=== PATIENT | female | born 1975 | race Caucasian/White ===

== ENCOUNTER 2016-05-12 18:00 | Emergency (ER) | payer BC ==
[~2016-05-12] VITALS: Ht 160 cm; Wt 104.0 kg
[~2016-05-12 18:00] MED LIST: ACID REDUCER; AFRIN 12 HOUR0.05 %; ALBUTEROL SUL0.083 % IN; ASPIRIN325 MG PO; ATIVAN0.5 MG PO; BACTRIM DS1 TAB PO; CALCIUM600 M2 PO; CIPROFLOXACN500 MG PO; COMBIVENT RESPIMAT IN; DENIES CURRENT MEDS; FLEXERIL OR; LORTAB 1010 MG PO; LORTAB 5 PO; LORTAB 5/3255 MG PO; LORTAB 7.5 PO; LORTAB5 PO; LYRICA100 MG PO; LYRICA50 MG PO; NORCO1 TA1 PO; POTASSIUM99 MG PO; SUDAFED 12HR120 MG PO; VITAMIN B-121000 MCG PO; ZESTRIL5 M1 PO; ZITHROMAX500 MG PO; ZOFRAN ODT4 MG PO; ZOFRAN4 MG/TAB PO
[2016-05-12] MEDS ORDERED: ATIVAN0.5 MG PO (18:53)
[2016-05-12 19:08] LABS: URINE BILIRUBIN - DIPSTICK NEGATIVE (NEGATIVE); URINE BLOOD DIPSTICK NEGATIVE (NEGATIVE); URINE CLARITY CLEAR; URINE COLOR YELLOW; URINE GLUCOSE - DIPSTICK NEGATIVE (NEGATIVE); URINE KETONE NEGATIVE (NEGATIVE); URINE NITRITE - DIPSTICK NEGATIVE (Negative); URINE PROTEIN - DIPSTICK NEGATIVE (NEG-TRACE); URINE SPECIFIC GRAVITY <=1.005; URINE UROBILINOGEN - DIPSTICK 0.2 E.U./dL (0.2)
[2016-05-12 19:09] LABS: URINE LEUK ESTERASE TRACE (NEGATIVE)
[2016-05-12 19:25] VITALS: BP 119/61
== END 2016-05-12 19:25 | disposition home or self-care (01) | DRG 880 ==
LOC: ED 18:00
PROVIDERS: Emergency Medicine
DX: F41.9 Anxiety disorder, unspecified (principal)
CPT/HCPCS: J2060

== ENCOUNTER 2016-11-29 15:01 | Emergency (ER) | payer BC ==
[~2016-11-29] VITALS: Ht 160 cm; Wt 100.0 kg
[2016-11-29 15:59] LABS: HEMATOCRIT 36.1 % (37.0-47.0); HEMOGLOBIN 12.8 g/dl (12.0-16.0); IMMATURE GRANULOCYTES 0.3 % (0.0-1.0); MEAN CELL VOLUME 90.9 fL CALC (80.0-100.0); MEAN CORPUSCULAR HGB 32.2 pG CALC (26.0-32.0); MEAN CORPUSCULAR HGB CONC 35.5 g/L CALC (32.0-36.0); NEUT# 3.09 thou/uL (2.00-7.15); RED BLOOD COUNT 3.97 mill/uL (4.20-5.60); RED CELL DISTRI WIDTH 12.1 % (11.5-15.5)
[2016-11-29 16:02] LABS: URINE BILIRUBIN - DIPSTICK NEGATIVE (NEGATIVE); URINE BLOOD DIPSTICK LARGE (NEGATIVE); URINE CLARITY CLOUDY; URINE COLOR YELLOW; URINE GLUCOSE - DIPSTICK NEGATIVE (NEGATIVE); URINE KETONE NEGATIVE (NEGATIVE); URINE LEUK ESTERASE NEGATIVE (NEGATIVE); URINE NITRITE - DIPSTICK NEGATIVE (Negative); URINE PROTEIN - DIPSTICK NEGATIVE (NEG-TRACE); URINE UROBILINOGEN - DIPSTICK 0.2 E.U./dL (0.2)
[2016-11-29 16:09] LABS: URINE AMORPH SEDIMENT MANY hpf (NONE-FEW); URINE SQUAMOUS EPITHELIAL CELL FEW EPI/hpf (0-FEW)
[2016-11-29 16:18] LABS: ALBUMIN 4.7 g/dL (3.2-5.0); ALKALINE PHOSPHATASE 100 u/l (38-126); ANION GAP 17 (6-22 (CALC)); BILIRUBIN, TOTAL 0.8 mg/dL (0.0-1.4); BUN 16 mg/dL (7-17); BUN/CREATININE RATIO 17 (12-20 (CALC)); CALCIUM 9.4 mg/dL (8.4-10.2); CARBON DIOXIDE 23 mmol/l (22-30); CHLORIDE 105 mmol/l (95-108); CREATININE 0.9 mg/dL (0.5-1.0); GFR > 60 ML/MIN (>=60 (CALC)); GFR FOR AFR.AMER. > 60 ML/MIN (>=60 (CALC)); GLUCOSE 101 mg/dL (65-105); SGOT/AST 36 u/l (14-36); SGPT/ALT 49 u/l (9-52); SODIUM 141 mmol/l (137-146); TOTAL PROTEIN 6.9 g/dL (6.3-8.2)
[2016-11-29] MEDS ORDERED: NAPROSYN500 MG PO (17:34)
[2016-11-29] MEDS ORDERED: CIPROFLOXACN500 MG PO (17:34)
[2016-11-29 17:46] VITALS: BP 129/86
== END 2016-11-29 17:56 | disposition home or self-care (01) | DRG 690 ==
LOC: ED 15:01
PROVIDERS: Emergency Medicine
DX: N39.0 Urinary tract infection, site not specified (principal); F41.9 Anxiety disorder, unspecified; R10.9 Unspecified abdominal pain; M51.36 Other intervertebral disc degeneration, lumbar region; J45.909 Unspecified asthma, uncomplicated; Z87.442 Personal history of urinary calculi
CPT/HCPCS: Q9967

== ENCOUNTER 2017-02-28 15:35 | Emergency (ER) | payer BC ==
[~2017-02-28] VITALS: Ht 160 cm; Wt 116.4 kg
[~2017-02-28 15:35] MED LIST changes: +NAPROSYN500 MG PO
[2017-02-28] MEDS ORDERED: FENOFIBRATE145 MG PO (16:00)
[2017-02-28] MEDS ORDERED: LOPRESSOR 550 MG/TAB PO (16:00)
[2017-02-28] MEDS ORDERED: PAROXETINE HCL40 MG PO (16:00)
[2017-02-28] MEDS ORDERED: PREDNISONE50 MG PO (17:44)
[2017-02-28] MEDS ORDERED: LORTAB 5/3255 MG PO (17:44)
[2017-02-28 17:50] VITALS: BP 130/74
== END 2017-02-28 17:55 | disposition home or self-care (01) | DRG 563 ==
LOC: ED 15:35
DX: S39.012A Strain of muscle, fascia and tendon of lower back, initial encounter (principal); M54.30 Sciatica, unspecified side; E78.00 Pure hypercholesterolemia, unspecified; I10 Essential (primary) hypertension; X50.0XXA Overexertion from strenuous movement or load, initial encounter; Y93.89 Activity, other specified

== ENCOUNTER 2018-01-18 21:48 | Emergency (ER) | payer BC ==
[~2018-01-18] VITALS: Ht 160 cm; Wt 101.8 kg
[~2018-01-18 21:48] MED LIST changes: +FENOFIBRATE145 MG PO; +LOPRESSOR 550 MG/TAB PO; +PAROXETINE HCL40 MG PO; +PREDNISONE50 MG PO
[2018-01-18] MEDS ORDERED: PYRIDIUM200 MG PO (21:58)
[2018-01-18 22:30] LABS: HEMATOCRIT 38.5 % (37.0-47.0); HEMOGLOBIN 13.5 g/dl (12.0-16.0); IMMATURE GRANULOCYTES 0.5 % (0.0-5.0); MEAN CELL VOLUME 92.1 fL CALC (80.0-100.0); MEAN CORPUSCULAR HGB 32.3 pG CALC (26.0-32.0); MEAN CORPUSCULAR HGB CONC 35.1 g/L CALC (32.0-36.0); NEUT# 4.59 thou/uL (2.00-7.15); RED BLOOD COUNT 4.18 mill/uL (4.20-5.60); RED CELL DISTRI WIDTH 12.1 % (11.5-15.5)
[2018-01-18 22:36] LABS: URINE CLARITY CLOUDY
[2018-01-18 22:40] LABS: URINE COLOR ORANGE
[2018-01-18 22:41] LABS: URINE AMORPH SEDIMENT FEW hpf (NONE-FEW); URINE MUCUS FEW hpf (NONE-FEW); URINE SQUAMOUS EPITHELIAL CELL FEW EPI/hpf (0-FEW)
[2018-01-18 22:50] LABS: ALBUMIN 3.9 g/dL (3.2-5.0); ALKALINE PHOSPHATASE 116 u/l (38-126); AMYLASE 64 u/l (30-110); ANION GAP 11 (6-22 (CALC)); BILIRUBIN, TOTAL 0.6 mg/dL (0.0-1.4); BUN 15 mg/dL (7-17); BUN/CREATININE RATIO 21 (12-20 (CALC)); CARBON DIOXIDE 25 mmol/l (22-30); CHLORIDE 107 mmol/l (95-108); CREATININE 0.7 mg/dL (0.5-1.0); GFR > 60 ML/MIN (>=60 (CALC)); GFR FOR AFR.AMER. > 60 ML/MIN (>=60 (CALC)); LIPASE 432 u/l (23-300); POTASSIUM 3.9 mmol/l (3.5-5.1); SGOT/AST 38 u/l (14-36); SODIUM 139 mmol/l (137-146); TOTAL PROTEIN 6.5 g/dL (6.3-8.2)
[2018-01-19] MEDS ORDERED: LORTAB 5/3255 MG PO (00:45)
[2018-01-19] MEDS ORDERED: TAMSULOSIN0.4 MG PO (00:45)
[2018-01-19 01:20] VITALS: BP 115/63
[2018-01-19] MEDS ORDERED: OMNICEF300 M1 PO (15:37)
[2018-01-19] MEDS ORDERED: MOTRIN400 MG PO (15:37)
== END 2018-01-19 01:20 | disposition home or self-care (01) | DRG 694 ==
LOC: ED 21:48
PROVIDERS: Family Medicine
DX: N13.2 Hydronephrosis with renal and ureteral calculous obstruction (principal); R10.30 Lower abdominal pain, unspecified; K76.0 Fatty (change of) liver, not elsewhere classified; Z87.442 Personal history of urinary calculi; R11.0 Nausea; R30.0 Dysuria; R35.0 Frequency of micturition
CPT/HCPCS: J0131

== ENCOUNTER 2018-01-19 15:07 | Emergency (ER) | payer BC ==
[~2018-01-19] VITALS: Ht 160 cm; Wt 101.8 kg
[~2018-01-19 15:07] MED LIST changes: +PYRIDIUM200 MG PO; +TAMSULOSIN0.4 MG PO
[2018-01-19] MEDS ORDERED: OMNICEF300 M1 PO (15:37)
[2018-01-19] MEDS ORDERED: MOTRIN400 MG PO (15:37)
[2018-01-19 17:04] VITALS: BP 139/89
== END 2018-01-19 17:10 | disposition home or self-care (01) | DRG 694 ==
LOC: ED 15:07
DX: N20.0 Calculus of kidney (principal); I10 Essential (primary) hypertension; E78.00 Pure hypercholesterolemia, unspecified; F17.210 Nicotine dependence, cigarettes, uncomplicated

== ENCOUNTER 2018-05-17 07:31 | Emergency (ER) | payer BC ==
[~2018-05-17] VITALS: Ht 160 cm; Wt 115.0 kg
[~2018-05-17 07:31] MED LIST changes: +MOTRIN400 MG PO; +OMNICEF300 M1 PO
[2018-05-17 08:40] LABS: URINE BILIRUBIN - DIPSTICK NEGATIVE (NEGATIVE); URINE BLOOD DIPSTICK LARGE (NEGATIVE); URINE COLOR ORANGE; URINE GLUCOSE - DIPSTICK 100 mg/dL (NEGATIVE); URINE KETONE NEGATIVE (NEGATIVE); URINE LEUK ESTERASE TRACE (NEGATIVE); URINE PH 6.5 (4.5-8.0); URINE PROTEIN - DIPSTICK TRACE mg/dL (NEG-TRACE)
[2018-05-17 08:41] LABS: URINE NITRITE - DIPSTICK POSITIVE (Negative)
[2018-05-17] MEDS ORDERED: PERCOCET 5/325M1 TAB PO (08:54)
[2018-05-17] MEDS ORDERED: TAMSULOSIN0.4 MG PO (08:54)
[2018-05-17] MEDS ORDERED: MACRODANTIN100 MG PO (08:54)
[2018-05-17] MEDS ORDERED: ONDANSETRON4 MG PO (08:57)
[2018-05-17 09:02] LABS: URINE RBC 50-100 RBC/hpf (0-5); URINE WBC 0-2 WBC/hpf (0-5)
[2018-05-17 09:03] LABS: URINE SQUAMOUS EPITHELIAL CELL FEW EPI/hpf (0-FEW)
[2018-05-17 09:04] LABS: URINE BACTERIA FEW hpf
[2018-05-17 09:15] VITALS: BP 117/80
== END 2018-05-17 09:15 | disposition home or self-care (01) | DRG 694 ==
LOC: ED 07:31
PROVIDERS: Emergency Medicine
DX: N20.0 Calculus of kidney (principal); N39.0 Urinary tract infection, site not specified; I10 Essential (primary) hypertension; F17.210 Nicotine dependence, cigarettes, uncomplicated; Z87.442 Personal history of urinary calculi

== ENCOUNTER 2018-11-18 11:31 | Emergency (ER) | payer BC ==
[~2018-11-18] VITALS: Ht 160 cm; Wt 101.5 kg
[~2018-11-18 11:31] MED LIST changes: +MACRODANTIN100 MG PO; +ONDANSETRON4 MG PO; +PERCOCET 5/325M1 TAB PO
[2018-11-18] MEDS ORDERED: ZPAK PO ×2 (13:15→13:57)
[2018-11-18] MEDS ORDERED: PREDNISONE10 MG PO ×2 (13:15→13:57)
[2018-11-18 13:33] VITALS: BP 106/48
== END 2018-11-18 13:39 | disposition home or self-care (01) | DRG 153 ==
LOC: ED 11:31
DX: J06.9 Acute upper respiratory infection, unspecified (principal); I10 Essential (primary) hypertension; F17.210 Nicotine dependence, cigarettes, uncomplicated

== ENCOUNTER 2019-04-22 | Emergency (ER) | payer BC ==
[~2019-04-22] MED LIST changes: +PREDNISONE10 MG PO; +ZPAK PO
[2019-04-22 07:33] LABS: HEMATOCRIT 40.8 % (37.0-47.0); HEMOGLOBIN 14.4 g/dl (12.0-16.0); IMMATURE GRANULOCYTES 0.4 % (0.0-5.0); MEAN CELL VOLUME 88.7 fL CALC (80.0-100.0); MEAN CORPUSCULAR HGB 31.3 pG CALC (26.0-32.0); MEAN CORPUSCULAR HGB CONC 35.3 g/L CALC (32.0-36.0); NEUT# 4.82 thou/uL (2.00-7.15); RED BLOOD COUNT 4.6 mill/uL (4.20-5.60); RED CELL DISTRI WIDTH 12.4 % (11.5-15.5)
[2019-04-22 07:52] LABS: ALBUMIN 4.1 g/dL (3.2-5.0); ALKALINE PHOSPHATASE 106 u/l (38-126); ANION GAP 13 (6-22 (CALC)); BILIRUBIN, TOTAL 0.8 mg/dL (0.0-1.4); BUN 10 mg/dL (7-17); BUN/CREATININE RATIO 17 (12-20 (CALC)); CARBON DIOXIDE 21 mmol/l (22-30); CHLORIDE 106 mmol/l (95-108); CREATININE 0.6 mg/dL (0.5-1.0); GFR > 60 ML/MIN (>=60 (CALC)); GFR FOR AFR.AMER. > 60 ML/MIN (>=60 (CALC)); LIPASE 349 u/l (23-300); POTASSIUM 4.1 mmol/l (3.5-5.1); SGOT/AST 29 u/l (14-36); SODIUM 136 mmol/l (137-146); TOTAL PROTEIN 6.8 g/dL (6.3-8.2)
[2019-04-22 07:58] LABS: URINE BILIRUBIN - DIPSTICK NEGATIVE (NEGATIVE); URINE BLOOD DIPSTICK TRACE-INTACT (NEGATIVE); URINE COLOR YELLOW; URINE GLUCOSE - DIPSTICK NEGATIVE (NEGATIVE); URINE KETONE NEGATIVE (NEGATIVE); URINE LEUK ESTERASE NEGATIVE (NEGATIVE); URINE NITRITE - DIPSTICK NEGATIVE (Negative); URINE PH 5.5 (4.5-8.0); URINE PROTEIN - DIPSTICK NEGATIVE (NEG-TRACE); URINE SPECIFIC GRAVITY >=1.030; URINE UROBILINOGEN - DIPSTICK 0.2 E.U./dL (0.2)
[2019-04-22] MEDS ORDERED: MOTRIN400 MG PO (08:02)
[2019-04-22] MEDS ORDERED: HYDROCO/APAP1 TA9 PO (08:02)
[2019-04-22] MEDS ORDERED: TAMSULOSIN0.4 MG PO (08:02)
== END 2019-04-22 08:30 | disposition home or self-care (01) | DRG 694 ==
PROVIDERS: Family Medicine
DX: N20.1 Calculus of ureter (principal); I10 Essential (primary) hypertension; Z87.442 Personal history of urinary calculi; F17.200 Nicotine dependence, unspecified, uncomplicated

== ENCOUNTER 2020-01-15 11:24 | Emergency (ER) | payer BC ==
[~2020-01-15] VITALS: Ht 160 cm; Wt 112.0 kg
[~2020-01-15 11:24] MED LIST changes: +HYDROCO/APAP1 TA9 PO
[2020-01-15 12:35] LABS: URINE BILIRUBIN - DIPSTICK NEGATIVE (NEGATIVE); URINE BLOOD DIPSTICK LARGE (NEGATIVE); URINE COLOR YELLOW; URINE GLUCOSE - DIPSTICK NEGATIVE (NEGATIVE); URINE KETONE NEGATIVE (NEGATIVE); URINE LEUK ESTERASE NEGATIVE (NEGATIVE); URINE NITRITE - DIPSTICK NEGATIVE (Negative); URINE PH 5.5 (4.5-8.0); URINE PROTEIN - DIPSTICK NEGATIVE (NEG-TRACE); URINE SPECIFIC GRAVITY 1.025; URINE UROBILINOGEN - DIPSTICK 0.2 E.U./dL (0.2)
[2020-01-15 12:36] LABS: HEMOGLOBIN 14.3 g/dl (12.0-16.0); IMMATURE GRANULOCYTES 0.4 % (0.0-5.0); MEAN CELL VOLUME 90.7 fL CALC (80.0-100.0); MEAN CORPUSCULAR HGB 31.6 pG CALC (26.0-32.0); MEAN CORPUSCULAR HGB CONC 34.9 g/dL CAL (32.0-36.0); NEUT# 4.4 thou/uL (2.00-7.15); RED BLOOD COUNT 4.52 mill/uL (4.20-5.60); RED CELL DISTRI WIDTH 11.9 % (11.5-15.5)
[2020-01-15 12:40] LABS: URINE RBC 25-50 RBC/hpf (0-5)
[2020-01-15 12:52] LABS: ALBUMIN 4.3 g/dL (3.2-5.0); ALKALINE PHOSPHATASE 111 u/l (38-126); ANION GAP 13 (6-22 (CALC)); BILIRUBIN, TOTAL 1.3 mg/dL (0.0-1.4); BUN 12 mg/dL (7-17); BUN/CREATININE RATIO 22 (12-20 (CALC)); CARBON DIOXIDE 21 mmol/l (22-30); CHLORIDE 106 mmol/l (95-108); CREATININE 0.5 mg/dL (0.5-1.0); GFR > 60 ML/MIN (>=60 (CALC)); GFR FOR AFR.AMER. > 60 ML/MIN (>=60 (CALC)); LIPASE 209 u/l (23-300); POTASSIUM 4.4 mmol/l (3.5-5.1); SGOT/AST 40 u/l (14-36); SODIUM 136 mmol/l (137-146); TOTAL PROTEIN 7.1 g/dL (6.3-8.2)
[2020-01-15] MEDS ORDERED: HYDROCO/APAP1 TA9 PO (13:55)
[2020-01-15 14:30] VITALS: BP 118/78
== END 2020-01-15 14:30 | disposition home or self-care (01) | DRG 392 ==
LOC: ED 11:24
PROVIDERS: Family Medicine
DX: R10.32 Left lower quadrant pain (principal); R31.9 Hematuria, unspecified; I10 Essential (primary) hypertension; F17.200 Nicotine dependence, unspecified, uncomplicated; Z87.442 Personal history of urinary calculi

== ENCOUNTER 2020-05-24 07:33 | Emergency (ER) | payer BC ==
[2020-05-24] MEDS ORDERED: PERCOCET 5/325M1 TAB PO (09:46)
[2020-05-24] MEDS ORDERED: ZOFRAN4 MG/TAB PO (09:46)
[2020-05-24] MEDS ORDERED: NARCAN4 MG/0.1 M (09:51)
[2020-05-24 10:02] VITALS: BP 126/82
== END 2020-05-24 10:05 | disposition home or self-care (01) | DRG 605 ==
LOC: ED 07:33
DX: S20.211A Contusion of right front wall of thorax, initial encounter (principal); S49.91XA Unspecified injury of right shoulder and upper arm, initial encounter; S59.901A Unspecified injury of right elbow, initial encounter; I10 Essential (primary) hypertension; M79.7 Fibromyalgia; F17.210 Nicotine dependence, cigarettes, uncomplicated; W01.0XXA Fall on same level from slipping, tripping and stumbling without subsequent striking against object, initial encounter

== ENCOUNTER 2021-01-27 10:09 | Emergency (ER) | payer BC ==
[~2021-01-27] VITALS: Ht 160 cm; Wt 102.2 kg
[~2021-01-27 10:09] MED LIST changes: +NARCAN4 MG/0.1 M
[2021-01-27 11:39] LABS: HEMATOCRIT 43.3 % (37.0-47.0); HEMOGLOBIN 15.3 g/dl (12.0-16.0); IMMATURE GRANULOCYTES 0.5 % (0.0-5.0); MEAN CORPUSCULAR HGB 31.8 pG CALC (26.0-32.0); MEAN CORPUSCULAR HGB CONC 35.3 g/dL CAL (32.0-36.0); NEUT# 4.26 thou/uL (2.00-7.15); RED BLOOD COUNT 4.81 mill/uL (4.20-5.60)
[2021-01-27 11:52] LABS: ALBUMIN 4.5 g/dL (3.2-5.0); ALKALINE PHOSPHATASE 126 u/l (38-126); ANION GAP 14 (6-22 (CALC)); BUN 10 mg/dL (7-17); BUN/CREATININE RATIO 15 (12-20 (CALC)); CARBON DIOXIDE 24 mmol/l (22-30); CHLORIDE 101 mmol/l (95-108); CREATININE 0.7 mg/dL (0.5-1.0); GFR > 60 ML/MIN (>=60 (CALC)); GFR FOR AFR.AMER. > 60 ML/MIN (>=60 (CALC)); POTASSIUM 3.7 mmol/l (3.5-5.1); SGOT/AST 40 u/l (14-36); SODIUM 136 mmol/l (137-146)
[2021-01-27 11:55] LABS: BILIRUBIN, TOTAL 2.6 mg/dL (0.0-1.4)
[2021-01-27 12:24] VITALS: BP 122/58
[2021-01-27] MEDS ORDERED: ZITHROMAX250 MG PO (12:30)
== END 2021-01-27 12:45 | disposition home or self-care (01) | DRG 153 ==
LOC: ED 10:09
PROVIDERS: Emergency Medicine
DX: J06.9 Acute upper respiratory infection, unspecified (principal); I10 Essential (primary) hypertension; M79.7 Fibromyalgia; F17.210 Nicotine dependence, cigarettes, uncomplicated; Z20.822 Contact with and (suspected) exposure to COVID-19

== ENCOUNTER 2021-02-17 17:37 | Emergency (ER) | payer BC ==
[~2021-02-17] VITALS: Ht 160 cm; Wt 100.0 kg
[~2021-02-17 17:37] MED LIST changes: +ZITHROMAX250 MG PO
[2021-02-17] MEDS ORDERED: ZPAK PO (18:50)
[2021-02-17 19:40] VITALS: BP 129/72
== END 2021-02-17 19:40 | disposition home or self-care (01) | DRG 153 ==
LOC: ED 17:37
DX: J02.9 Acute pharyngitis, unspecified (principal); I10 Essential (primary) hypertension; E78.00 Pure hypercholesterolemia, unspecified; M79.7 Fibromyalgia; Z87.442 Personal history of urinary calculi; Z20.822 Contact with and (suspected) exposure to COVID-19

== ENCOUNTER 2021-02-22 12:04 | Emergency (ER) | payer BC ==
[~2021-02-22] VITALS: Ht 160 cm; Wt 120.0 kg
[2021-02-22 13:35] LABS: HEMATOCRIT 41.2 % (37.0-47.0); HEMOGLOBIN 14.2 g/dl (12.0-16.0); IMMATURE GRANULOCYTES 0.3 % (0.0-5.0); MEAN CELL VOLUME 92.2 fL CALC (80.0-100.0); MEAN CORPUSCULAR HGB 31.8 pG CALC (26.0-32.0); MEAN CORPUSCULAR HGB CONC 34.5 g/dL CAL (32.0-36.0); NEUT# 3.53 thou/uL (2.00-7.15); RED BLOOD COUNT 4.47 mill/uL (4.20-5.60); RED CELL DISTRI WIDTH 12.3 % (11.5-15.5)
[2021-02-22 13:48] LABS: ALBUMIN 4.1 g/dL (3.2-5.0); ALKALINE PHOSPHATASE 102 u/l (38-126); ANION GAP 9 (6-22 (CALC)); BUN 10 mg/dL (7-17); BUN/CREATININE RATIO 15 (12-20 (CALC)); CARBON DIOXIDE 28 mmol/l (22-30); CHLORIDE 105 mmol/l (95-108); CREATININE 0.7 mg/dL (0.5-1.0); GFR > 60 ML/MIN (>=60 (CALC)); GFR FOR AFR.AMER. > 60 ML/MIN (>=60 (CALC)); POTASSIUM 3.9 mmol/l (3.5-5.1); SGOT/AST 33 u/l (14-36); SODIUM 137 mmol/l (137-146); TOTAL PROTEIN 7.2 g/dL (6.3-8.2)
[2021-02-22 13:49] LABS: BILIRUBIN, TOTAL 1.3 mg/dL (0.0-1.4)
[2021-02-22] MEDS ORDERED: DOXYCYCL HYC100 M4 PO (17:15)
[2021-02-22] MEDS ORDERED: PREDNISONE50 MG PO (17:15)
[2021-02-22] MEDS ORDERED: PROAIR HFA108 MCG/AC PO (17:15)
[2021-02-22 17:37] VITALS: BP 133/78
== END 2021-02-22 17:39 | disposition home or self-care (01) | DRG 203 ==
LOC: ED 12:04
PROVIDERS: Family Medicine
DX: J40 Bronchitis, not specified as acute or chronic (principal); I10 Essential (primary) hypertension; E78.00 Pure hypercholesterolemia, unspecified; F17.200 Nicotine dependence, unspecified, uncomplicated; Z87.442 Personal history of urinary calculi; Z20.822 Contact with and (suspected) exposure to COVID-19

== ENCOUNTER 2021-06-09 15:42 | Emergency (ER) | payer BC ==
[~2021-06-09] VITALS: Ht 160 cm; Wt 122.0 kg
[~2021-06-09 15:42] MED LIST changes: +DOXYCYCL HYC100 M4 PO; +PROAIR HFA108 MCG/AC PO
[2021-06-09 15:49] VITALS: BP 130/65
[2021-06-09] MEDS ORDERED: HYDROCO/APAP1 TA9 PO (18:05)
== END 2021-06-09 18:25 | disposition home or self-care (01) | DRG 556 ==
LOC: ED 15:42
DX: M25.562 Pain in left knee (principal); I10 Essential (primary) hypertension; E66.9 Obesity, unspecified; E78.00 Pure hypercholesterolemia, unspecified; F17.200 Nicotine dependence, unspecified, uncomplicated

== ENCOUNTER 2021-09-11 10:43 | Emergency (ER) | payer BC ==
[~2021-09-11] VITALS: Ht 160 cm; Wt 100.0 kg
[2021-09-11 11:53] LABS: HEMATOCRIT 44.4 % (37.0-47.0); HEMOGLOBIN 15.1 g/dl (12.0-16.0); IMMATURE GRANULOCYTES 0.1 % (0.0-5.0); MEAN CELL VOLUME 92.3 fL CALC (80.0-100.0); MEAN CORPUSCULAR HGB 31.4 pG CALC (26.0-32.0); NEUT# 5.61 thou/uL (2.00-7.15); RED BLOOD COUNT 4.81 mill/uL (4.20-5.60); RED CELL DISTRI WIDTH 12.5 % (11.5-15.5)
[2021-09-11 11:57] LABS: URINE BLOOD DIPSTICK LARGE (NEGATIVE); URINE COLOR BROWN; URINE GLUCOSE - DIPSTICK NEGATIVE (NEGATIVE); URINE KETONE TRACE mg/dL (NEGATIVE); URINE LEUK ESTERASE NEGATIVE (NEGATIVE); URINE PROTEIN - DIPSTICK 100 mg/dL (NEG-TRACE); URINE SPECIFIC GRAVITY >=1.030
[2021-09-11 11:58] LABS: URINE BILIRUBIN - DIPSTICK SMALL (NEGATIVE); URINE NITRITE - DIPSTICK POSITIVE (Negative)
[2021-09-11 12:00] LABS: URINE RBC 50-100 RBC/hpf (0-5); URINE SQUAMOUS EPITHELIAL CELL FEW EPI/hpf (0-FEW)
[2021-09-11 12:04] LABS: ALBUMIN 4.6 g/dL (3.2-5.0); ALKALINE PHOSPHATASE 107 u/l (38-126); BILIRUBIN, TOTAL 1.1 mg/dL (0.0-1.4); BUN 6 mg/dL (7-17); BUN/CREATININE RATIO 10 (12-20 (CALC)); CARBON DIOXIDE 26 mmol/l (22-30); CHLORIDE 107 mmol/l (95-108); CREATININE 0.6 mg/dL (0.5-1.0); GFR FOR AFR.AMER. > 60 ML/MIN (>=60 (CALC)); GFR OTHER RACES > 60 ML/MIN (>=60 (CALC)); LIPASE 137 u/l (23-300); SGOT/AST 28 u/l (14-36); TOTAL PROTEIN 7.5 g/dL (6.3-8.2)
[2021-09-11 12:06] LABS: ANION GAP 10 (6-22 (CALC)); SODIUM 139 mmol/l (137-146)
[2021-09-11] MEDS ORDERED: OMNI-PAC300 MG PO (12:40)
[2021-09-11] MEDS ORDERED: DILAUDID2 MG PO (12:40)
[2021-09-11 13:14] VITALS: BP 144/90
== END 2021-09-11 13:34 | disposition home or self-care (01) | DRG 690 ==
LOC: ED 10:43
PROVIDERS: Family Medicine
DX: N39.0 Urinary tract infection, site not specified (principal); I10 Essential (primary) hypertension; E78.00 Pure hypercholesterolemia, unspecified; F17.200 Nicotine dependence, unspecified, uncomplicated; E66.9 Obesity, unspecified; Z87.442 Personal history of urinary calculi

== ENCOUNTER 2022-10-20 15:50 | Emergency (ER) | payer BC ==
[~2022-10-20 15:50] MED LIST changes: +DILAUDID2 MG PO; +OMNI-PAC300 MG PO
== END 2022-10-20 15:53 | disposition left against medical advice (07) | DRG 951 ==
LOC: ED 15:50 → LWOBS 15:53
DX: Z53.21 Procedure and treatment not carried out due to patient leaving prior to being seen by health care provider (principal)

== ENCOUNTER 2023-01-29 11:38 | Emergency (ER) | payer BC ==
[2023-01-29] VITALS (10 sets, daily range): BP systolic 110–150; BP diastolic 58–97
[~2023-01-29] VITALS: Ht 160 cm; Wt 111.5 kg
[2023-01-29] MEDS ORDERED: BUPROPION HCL150 MG PO (12:41)
[2023-01-29] MEDS ORDERED: REMERON SLTB45 MG PO (12:41)
[2023-01-29 13:24] LABS: BASO% 0.4 % (0-3); EOS% 2.4 % (0-8); HEMATOCRIT 42.4 % (37.0-47.0); HEMOGLOBIN 14.5 g/dl (12.0-16.0); IMMATURE GRANULOCYTES 0.8 % (0.0-5.0); MEAN CELL VOLUME 88.3 fL CALC (80.0-100.0); MEAN CORPUSCULAR HGB 30.2 pG CALC (26.0-32.0); MEAN CORPUSCULAR HGB CONC 34.2 g/dL CAL (32.0-36.0); MONO% 7.9 % (2-13); NEUT% 61.5 % (42-76); RED BLOOD COUNT 4.8 mill/uL (4.20-5.60); RED CELL DISTRI WIDTH 12.6 % (11.5-15.5); URINE BILIRUBIN - DIPSTICK Negative (NEGATIVE); URINE BLOOD DIPSTICK Moderate (NEGATIVE); URINE GLUCOSE - DIPSTICK Negative (NEGATIVE); URINE KETONE Negative (NEGATIVE); URINE NITRITE - DIPSTICK Negative (Negative); URINE PROTEIN - DIPSTICK Negative (NEG-TRACE); URINE UROBILINOGEN - DIPSTICK 0.2 E.U./dL (0.2)
[2023-01-29 13:25] LABS: URINE COLOR Yellow; URINE LEUK ESTERASE Small (NEGATIVE)
[2023-01-29 13:48] LABS: URINE BACTERIA FEW hpf; URINE SQUAMOUS EPITHELIAL CELL MODERATE EPI/hpf (0-FEW); URINE TRANSITIONAL EPI. CELLS RARE hpf
[2023-01-29 14:28] LABS: ALBUMIN 4.9 g/dL (3.2-5.0); ALKALINE PHOSPHATASE 132 u/l (38-126); ANION GAP 18 (6-22 (CALC)); BUN 9 mg/dL (7-17); BUN/CREATININE RATIO 16 (12-20 (CALC)); CARBON DIOXIDE 22 mmol/l (22-30); CHLORIDE 101 mmol/l (95-108); CREATININE 0.6 mg/dL (0.5-1.0); GFR FOR AFR.AMER. > 60 ML/MIN (>=60 (CALC)); GFR OTHER RACES > 60 ML/MIN (>=60 (CALC)); LIPASE 198 u/l (23-300); POTASSIUM 4.3 mmol/l (3.5-5.1); SGOT/AST 42 u/l (14-36); SODIUM 137 mmol/l (137-146); TOTAL PROTEIN 7.5 g/dL (6.3-8.2)
[2023-01-29] MEDS ORDERED: LORTAB 5/3255 MG PO (15:40)
[2023-01-29] MEDS ORDERED: KEFLEX500 MG PO (15:59)
== END 2023-01-29 16:24 | disposition home or self-care (01) | DRG 694 ==
LOC: ED 11:38
PROVIDERS: Family Medicine
DX: N20.1 Calculus of ureter (principal); N39.0 Urinary tract infection, site not specified; Z87.442 Personal history of urinary calculi

== ENCOUNTER 2024-01-18 15:36 | Emergency (ER) | payer BC ==
[~2024-01-18] VITALS: Ht 160 cm; Wt 102.0 kg
[~2024-01-18 15:36] MED LIST changes: +BUPROPION HCL150 MG PO; +KEFLEX500 MG PO; +REMERON SLTB45 MG PO
[2024-01-18 15:46] VITALS: BP 131/47
[2024-01-18] MEDS ORDERED: PROCHLORPERAZINE EDISYLATE 10 MG/2 ML SDV IV ONE (15:55)
[2024-01-18] MEDS ORDERED: DiphenhydrAMINE HCL 50 MG/ML SDV IV ONE (15:55)
[2024-01-18] MEDS ORDERED: ACETAMINOPHEN 1,000 MG/100 ML VIAL IV ONE (15:55)
[2024-01-18 16:01] VITALS: BP 128/62
[2024-01-18 16:16] VITALS: BP 137/73
[2024-01-18 16:37] VITALS: BP 137/73
== END 2024-01-18 17:06 | disposition left against medical advice (07) | DRG 103 ==
LOC: ED 15:36
DX: G43.009 Migraine without aura, not intractable, without status migrainosus (principal); I10 Essential (primary) hypertension; E78.00 Pure hypercholesterolemia, unspecified; F17.200 Nicotine dependence, unspecified, uncomplicated; Z53.29 Procedure and treatment not carried out because of patient's decision for other reasons
CPT/HCPCS: J0131; J1200

== ENCOUNTER 2024-02-19 15:39 | Emergency (ER) | payer BC ==
[~2024-02-19] VITALS: Ht 160 cm; Wt 106.0 kg
[2024-02-19 16:37] VITALS: BP 126/73
[2024-02-19 16:45] VITALS: BP 121/78
[2024-02-19] MEDS ORDERED: LEVOCETIRIZINE D5 MG PO (16:59)
[2024-02-19] MEDS ORDERED: BENZONATATE200 MG PO (16:59)
[2024-02-19] MEDS ORDERED: VIBRAMYCIN100 M2 PO (16:59)
[2024-02-19 17:00] VITALS: BP 113/66
[2024-02-19 17:14] VITALS: BP 113/66
== END 2024-02-19 17:15 | disposition home or self-care (01) | DRG 153 ==
LOC: ED 15:39
DX: J32.9 Chronic sinusitis, unspecified (principal); I10 Essential (primary) hypertension; E78.00 Pure hypercholesterolemia, unspecified; F17.200 Nicotine dependence, unspecified, uncomplicated; Z20.822 Contact with and (suspected) exposure to COVID-19

== ENCOUNTER 2024-03-04 14:34 | Emergency (ER) | payer BC ==
[~2024-03-04] VITALS: Ht 160 cm; Wt 102.0 kg
[~2024-03-04 14:34] MED LIST changes: +BENZONATATE200 MG PO; +LEVOCETIRIZINE D5 MG PO; +VIBRAMYCIN100 M2 PO
[2024-03-04] MEDS ORDERED: SODIUM CHLORIDE 0.9% 1,000 ML IV ONE (15:00)
[2024-03-04] MEDS ORDERED: ONDANSETRON HCl 4 MG/2 ML SDV IV ONE (15:05)
[2024-03-04] MEDS ORDERED: HYDROmorphone HCL 2 MG/AMP IV ONE (15:05)
[2024-03-04 15:08] VITALS: BP 74/31
[2024-03-04 15:10] VITALS: BP 130/66
[2024-03-04 15:12] LABS: URINE BILIRUBIN - DIPSTICK Negative (NEGATIVE); URINE BLOOD DIPSTICK Moderate (NEGATIVE); URINE GLUCOSE - DIPSTICK Negative (NEGATIVE); URINE KETONE Negative (NEGATIVE); URINE LEUK ESTERASE Negative (NEGATIVE); URINE NITRITE - DIPSTICK Negative (Negative); URINE PROTEIN - DIPSTICK Trace mg/dL (NEG-TRACE); URINE SPECIFIC GRAVITY 1.025
[2024-03-04 15:17] LABS: URINE COLOR Yellow
[2024-03-04 15:20] LABS: URINE RBC 25-50 RBC/hpf (0-5)
[2024-03-04 15:21] LABS: URINE SQUAMOUS EPITHELIAL CELL RARE EPI/hpf (0-FEW); URINE WBC 0-2 WBC/hpf (0-5)
[2024-03-04 15:30] LABS: BASO% 0.3 % (0-3); EOS% 4.3 % (0-8); HEMATOCRIT 36.8 % (37.0-47.0); HEMOGLOBIN 12.2 g/dl (12.0-16.0); IMMATURE GRANULOCYTES 0.1 % (0.0-5.0); LYMPH% 24.4 % (15-41); MEAN CELL VOLUME 84.8 fL CALC (80.0-100.0); MEAN CORPUSCULAR HGB 28.1 pG CALC (26.0-32.0); MEAN CORPUSCULAR HGB CONC 33.2 g/dL CAL (32.0-36.0); MONO% 5.9 % (2-13); NEUT# 5.04 thou/uL (2.00-7.15); RED BLOOD COUNT 4.34 mill/uL (4.20-5.60)
[2024-03-04 15:40] VITALS: BP 140/72
[2024-03-04 15:46] LABS: ALBUMIN 4.3 g/dL (3.2-5.0); BILIRUBIN, TOTAL 1.3 mg/dL (0.02-1.3); CREATININE 0.7 mg/dL (0.5-1.0); POTASSIUM 3.8 mmol/l (3.5-5.1); TOTAL PROTEIN 6.9 g/dL (6.3-8.2)
[2024-03-04 16:01] VITALS: BP 117/55
[2024-03-04] MEDS ORDERED: HYDROmorphone HCL 2 MG/AMP IV STA (16:15)
[2024-03-04] MEDS ORDERED: ZOFRAN4 MG/TAB PO (16:17)
[2024-03-04] MEDS ORDERED: METOCLOPRAMIDE HCL 10 MG/2 ML SDV IV ONE (16:20)
[2024-03-04] MEDS ORDERED: TAMSULOSIN HCL 0.4 MG CAP PO ONE (16:20)
[2024-03-04 16:31] VITALS: BP 108/71
== END 2024-03-04 16:35 | disposition home or self-care (01) | DRG 392 ==
LOC: ED 14:34
PROVIDERS: Nurse Practitioner
DX: R10.9 Unspecified abdominal pain (principal); R31.9 Hematuria, unspecified; I10 Essential (primary) hypertension; E66.9 Obesity, unspecified; F32.A Depression, unspecified; E78.00 Pure hypercholesterolemia, unspecified; F17.200 Nicotine dependence, unspecified, uncomplicated; Z87.442 Personal history of urinary calculi; Z88.8 Allergy status to other drugs, medicaments and biological substances
CPT/HCPCS: J1171; J2405; J2765

== ENCOUNTER 2024-04-02 10:17 | Emergency (ER) | payer BC ==
[~2024-04-02] VITALS: Ht 160 cm; Wt 102.0 kg
[2024-04-02 10:31] VITALS: BP 122/54
[2024-04-02 10:46] VITALS: BP 113/52
[2024-04-02 11:17] VITALS: BP 111/68
[2024-04-02] MEDS ORDERED: HYDROcodone/Acetaminophen 1 COMBO TAB PO ONE (11:30)
[2024-04-02] MEDS ORDERED: LORTAB 1010 MG PO (12:41)
[2024-04-02 12:54] VITALS: BP 111/68
== END 2024-04-02 12:54 | disposition home or self-care (01) | DRG 552 ==
LOC: ED 10:17
DX: S32.2XXA Fracture of coccyx, initial encounter for closed fracture (principal); I10 Essential (primary) hypertension; E78.00 Pure hypercholesterolemia, unspecified; F17.290 Nicotine dependence, other tobacco product, uncomplicated; W18.2XXA Fall in (into) shower or empty bathtub, initial encounter; Y93.E1 Activity, personal bathing and showering; Y92.002 Bathroom of unspecified non-institutional (private) residence as the place of occurrence of the external cause